=== PATIENT | female | born 1940 | race Caucasian/White ===

== ENCOUNTER 2024-12-17 15:46 | Inpatient (IN) | payer OTHER, SELFPAY ==
[2024-12-17] VITALS (16 sets, daily range): BP systolic 97–190; BP diastolic 67–172
--- NOTE | 2024-12-17 11:17 | ED.GENMED ---
History of Present Illness
General
Chief Complaint: Abdominal Pain
Time Seen by Provider: 12/17/24 11:07
History of Present Illness
History of Present Illness:
83-year-old female with reported history of dementia and baseline confusion presenting for enlarging abdominal pain. Patient arrives from nursing facility report abdominal pain and decreased appetite. They also note labored breathing, however
reports that dyspnea on exertion is patient's baseline. Patient is very limited historian given her dementia. She is also Citizen [place]-speaking. Attempt with [place] auto seat cover installer, no additional information obtained.
Phy Exam
Physical Exam
Physical Exam:
General: Well-appearing, no clinical signs of dehydration, nontoxic and in no acute distress
HEENT: protecting airway
Neck: appears supple
CV: Tachycardic, regular rhythm, no evidence of cyanosis
Resp: Increased work of breathing with upper respiratory wheezing. Lungs are clear to auscultation
Abd: Soft and non-distended, no tenderness to palpation
Extremities: No deformities, no swelling
Neuro: alert, disoriented
Rectal: deferred
Psych: Agitated
Skin: Intact
Course
Orders/Labs/Results
Orders:
Orders
12/17/24 11:12
Complete Blood Count/With Diff Urgent
Comprehensive Metabolic Panel Urgent
Lipase Urgent
TSH Reflex To Free T4 Urgent
Comment: ADD ON
12/17/24 11:15
Urinalysis Reflex To Culture Urgent
Date Specimen was Collected: 12/19/24
Time Specimen was Collected: 03:52
CR Chest - 2 Views Urgent
Comment:
Reason For Exam: SOB
12/17/24 11:16
0.9% Sodium Chloride 1000 ml [Nss] 1,000 ml IV BOLUS
12/17/24 11:21
NT-proBNP Urgent
Troponin I Urgent
Comment: ADD ON
12/17/24 11:25
Electrocardiogram (*1) Urgent
Reason for Study: Tachycardia
EKG- Treatment ONCE
12/17/24 11:46
Diltiazem HCl [Cardizem] 15 mg IV NOW STA
12/17/24 11:53
CT Chest/abd/pelvis Angio W/wo Urgent
Comment:
Reason For Exam: SOB, widened mediastinum
12/17/24 13:29
Lorazepam [Ativan] 0.5 mg IV NOW STA
12/17/24 14:00
Diltiazem 125 mg/125 ml Nss [Cardizem] 125 mg in 125 ml IV PER PROTOCOL
Currently infusing. Continue current dose and titrate:: Yes
Titrate to keep:: Heart rate 80-100 bpm
Titrate by mg/hr:: 5 mg/hr
Frequency of titrations (minutes):: 15
Maximum dose in mg/hr:: 15
Restraints - Non Violent As Directed
Justification-Patient:: 1-Attempts to remove tube
Restraint Type-: Soft Limb-L&R Wrist/4rail
Apply From (date): 12/17/24
Apply from (time): 14:00
Remove (date): 12/18/24
Remove (time): 23:59
12/17/24 14:11
Haloperidol Lactate [Haldol] 1 mg IM NOW STA
12/17/24 14:42
EKG [Electrocardiogram (*1)] Urgent
Reason for Study: Abnormal EKG
12/17/24 15:01
Furosemide [Lasix] 20 mg IV NOW STA
Levalbuterol [Xopenex 1.25 mg Inhalant Solution] 1.25 mg INH R NOW STA
12/17/24 15:02
Xopenex Reason for Use As Directed
Reason for ordering Xopenex instead of Albuterol: rapid afib
12/17/24 15:03
Add On- LAB Urgent
Tests Added?: troponin, tsh with free t4 reflex
12/17/24 15:05
Admit/Transfer Patient As Directed
Co-Sign Provider:
Level of Care: Inpatient admission
Assign to:: IMU- Intermediate Care
Physician / Group: arnaldo urrutia
Diagnosis: new afib rvr, Acute chf, A.aneurysm w/intramural hematoma,Occ L sfa,lung ma
Reason for Hospitalization: new afib rvr, Acute chf, A.aneurysm w/intramural hematoma,Occ L sfa,lung mass
Expected length of stay greater than two midnights?: Yes
ELOS- Estimated Length of Stay in days: 5
I certify the patient meets the requirements for IP care: Yes
Code Status As Directed
Resuscitation Status: Do not resuscitate
Based on pt advanced directive or healthcare POA form: Yes
Decision communicated with: pr NH form
12/17/24 15:18
PRN Pain Medication Management As Directed
May give lesser potent ordered pain med per pt: Yes
preference::
Protocol:: Medication orders for pain may be administered in a
manner that supports deferring to patient preference
when the pt is:
- Requesting an ordered lesser potent pain medication.
Least to most potent pain medications are defined
as: acetaminophen < NSAID < tramadol < opioids
(morphine, oxycodone, hydromorphone).
- Requesting a lesser dose of the same medication IF
ORDERED.
- Requesting a less intrusive route of administration
if both routes are prescribed by the provider (PO <
IV).
12/17/24 15:20
CARDIOLOGY CONSULT Routine
Consulting Provider: Eze Crocker
Was physician already notified: Yes
Reason for consult: new afib rvr, Acute chf, A.aneurysm w/intramural hematoma,Occ L sfa,lung ma
SURGICAL CONSULT Routine
Consulting Provider: Benjamin Huff
Was physician already notified: Yes
Reason for consult: A.aneurysm w/intramural hematoma,Occ L sfa,new afib rvr, Acute chf,lung ma
12/17/24 17:10
Acetaminophen [Tylenol] 650 mg PO Q4HPRN PRN
Haloperidol Lactate [Haldol] 1 mg IV BIDPRN PRN
Magnesium Hydroxide [Milk of Magnesia] 30 ml PO HSPRN PRN if no bm by 3rd day
12/17/24 17:10
VTE Contraindication Routine
VTE Mechanical Device Contraindication: Medical Contraindication
Pharmocologic Contraindication: Medical Contraindication
Comment: ascending hematoma afib rvr
Activity As Directed
Activity Level: With Assistance
Intake/ Output As Directed
Frequency: Per unit guidelines
Vital Signs As Directed
Frequency: Per unit guidelines
Weight As Directed
Frequency: Daily
Pulse Ox/spot Check [RESP] Routine
Quantity: 1
12/17/24 18:00
Metoprolol [Lopressor] 5 mg IV Q6
Sennosides [Senokot] 8.6 mg PO QPM
12/17/24 20:00
Lorazepam [Ativan] 0.5 mg PO BID
Memantine HCl [Namenda] 10 mg PO BID
12/18/24 04:09
Basic Metabolic Panel IN AM
Cardiovascular Evaluation IN AM
Complete Blood Count/With Diff IN AM
12/18/24 08:00
Cyanocobalamin [Vitamin B-12] 1,000 mcg PO DAILY
Polyethylene Glycol Powder [Miralax] 17 grams PO DAILY
12/19/24 03:31
Basic Metabolic Panel IN AM
Complete Blood Count/With Diff IN AM
12/20/24 06:00
Basic Metabolic Panel IN AM
Complete Blood Count/With Diff IN AM
12/21/24 06:00
Basic Metabolic Panel IN AM
Complete Blood Count/With Diff IN AM
12/22/24 06:00
Basic Metabolic Panel IN AM
Complete Blood Count/With Diff IN AM
Abnormal Lab Results
12/17/24 12/17/24
11:12 11:21
MCHC 31.9 L g/dL
(33.0-37.0)
Abs Immat Gran (auto) 0.1 H 10^3/uL
(0-0.05)
Absolute Neuts (auto) 8.5 H 10^3/uL
(1.4-6.5)
Absolute Lymphs (auto) 0.8 L 10^3/uL
(1.2-3.4)
Absolute Monos (auto) 1.0 H 10^3/uL
(0.1-0.6)
Neutrophils % 81.6 H %
(42.2-75.2)
Lymphocytes % 8.0 L %
(20.5-51.1)
BUN 18 H mg/dl
(7-17)
Creatinine 1.1 H mg/dL
(0.6-1.0)
Glucose 134 H mg/dl
(70-99)
Total Bilirubin 1.4 H mg/dl
(0.2-1.3)
Troponin I 0.036 H* ng/ml
12/17/24 11:12
12/17/24 11:12
Vital Signs
Initial and Last Documented VS:
Initial Vital Signs
Temp Pulse Resp
98.4 F 123 29
12/17/24 11:03 12/17/24 11:03 12/17/24 11:03
Last Documented Vital Signs
Temp Pulse Resp BP Pulse Ox
98.2 F 112 28 114/99 94
12/19/24 07:24 12/19/24 12:00 12/19/24 12:00 12/19/24 12:00 12/19/24 08:23
MDM/Problems Addressed
MDM/Problems Addressed:
83-year-old female with history of dementia presenting from nursing facility with concern of abdominal pain. Vital signs on arrival are significant for tachycardia and tachypnea.
On exam, patient is in no acute distress, however is agitated. Attempt with auto seat cover installer, unsuccessful. Patient answers no to all questioning. Daughter is allegedly coming to the hospital, so we will try to obtain more information from daughter.
In the meantime, plan for laboratory analysis given presenting tachypnea. Will obtain chest x-ray imaging. No present tenderness to the abdomen. Will also obtain EKG and start patient IV fluids, report of decreased p.o. intake, slight dryness to
mucous membranes.
11:50 -did get in touch with patient's daughter who notes that she does have underlying dementia. She reports that over the weekend she had a call that the patient had vomited however her vitals were stable. Today they got a call that she was
hypertensive and tachycardic and that they were bringing her to the hospital. She notes that every time that she has seen her in the recent past, has seemed short of breath, dyspnea on exertion. This is not her baseline. Chest x-ray obtained
while having this conversation which shows moderate bilateral pleural effusions and pulmonary edema. Patient is also in atrial fibrillation, which is not known to her. Suspect that patient has likely been in atrial fibrillation which is now
putting her into congestive heart failure. Will start on diltiazem.
13:55 -CT shows concern of fusiform aneurysmal dilatation of the ascending thoracic aorta measuring up to 5 cm with peripheral crescentic rim of hyperattenuation on the noncontrast images measuring up to 5 mm in thickness suspicious for acute
intramural hematoma. No dissection appreciated. There is also mention of an occlusion of the left superficial femoral artery. Holding anticoagulation until input from cardiology. Also mention of a suspected primary lung cancer in the left upper
lobe. Fluctuating blood pressures, given patient's agitation. Starting on diltiazem drip and soft restraints. Did consult with CT surgery, recommending cardiac consultation. Discussed with cardiology, will see patient. Plan for admission.
*Pulse Oximetry
Patient hypoxic: no
*EKG
Interpreted by ED Provider?: Yes
EKG Intrepretation Date: 12/17/24
EKG Intrepretation Time: 14:02
Interpretation: abnormal
Comparison EKG: no comparison EKG present
Heart Rate: 113
Rate: tachycardiac
Rhythm: sinus and a-fib
Barton: normal axis
QRS Pattern: normal QRS
Ischemia: non-specific ST changes
*Critical Care Note
Total Time (30-74mins, 75-104mins- exclusive of procedures): 55
comment:
The high probability of a clinically significant, sudden or life threatening deterioration of the cardiovascular system(s) required my full and direct attention, intervention and personal management. The aggregate critical care time was [] minutes.
This time is in addition to time spent performing reported procedures but includes the following:
[x] Data Review and interpretation
[x] Patient assessment and monitoring of vital signs
[x] Documentation
[x] Medication orders and management
ED Attending Note
-
Portions of this chart may have been created with voice recognition software.� Occasional wrong word or��sound alike� substitutions may have occurred due to the inherent limitations of voice recognition software.
Discharge Plan
Departure
Patient Disposition: Admit
Date of Disposition: 12/17/24
Time of Disposition: 14:01
Presentation/result/management discussed w/ accepting MD/DO: Hospitalist
Patient with high blood pressure during this ER visit?: No
Condition: Critical
Discharge Problem:
Atrial fibrillation, Intramural hematoma of thoracic aorta, Shortness of breath
Interventions
Interventions:
*Risk Screen - Suicide Last Done: 12/17/24 11:28
*General Assessment Last Done: 12/17/24 11:28
*Neglect/Abuse Screening Last Done: 12/17/24 11:28
*ED- Fall Risk Assessment Last Done: 12/17/24 11:28
*ED COVID-19 Vaccine History Last Done: 12/17/24 11:28
*Nursing Disposition Last Done: 12/17/24 18:30
WA-Igtkpz-Wmfjubpwgl Assessment Last Done: 12/17/24 11:28
Discharge Date and Time
Discharge Date/Time: 12/17/24 18:31
[2024-12-17 11:22] LABS: Hematocrit 45.2 % (37.0-47.0); Hemoglobin 14.4 g/dL (12.0-16.0); Mean Corp Hgb Conc. 31.9 g/dL (33.0-37.0); Mean Corpuscular Volume 89.2 fL (81.0-99.0); Nucleated Red Blood Cells % 0 %; Platelet Count 229 10^3/uL (130-400); Red Cell Dist. Width 13.6 % (11.5-14.5)
[2024-12-17] MEDS: NSS 1000 IV (11:25)
[2024-12-17 11:33] LABS: ALT (SGPT) 15 U/L (0-35); AST (SGOT) 21 U/L (14-36); Albumin 4.0 g/dl (3.5-5.0); Alkaline Phosphatase 59 U/L (38-126); Blood Urea Nitrogen 18 mg/dl (7-17); Calcium 9.1 mg/dl (8.4-10.2); Carbon Dioxide 30 mmol/L (22-30); Chloride 104 mmol/L (98-107); Glucose 134 mg/dl (70-99); Lipase 39 U/L (23-300); Potassium 3.9 mmol/L (3.5-5.1); Sodium 141 mmol/L (135-145); Total Protein 7.4 g/dl (6.3-8.2); eGFR 49.24
[2024-12-17] MEDS: CARDIZEM 15 MG IV (11:55)
[2024-12-17] MEDS: ATIVAN 0.5 MG IV (13:34)
[2024-12-17] MEDS: CARDIZEM 125 IV (14:15)
--- NOTE | 2024-12-17 14:23 | CON.CAR ---
Addendum entered and electronically signed by Eze Crocker MD 12/17/24 18:54:
I saw and examined the patient independently.
The TRAINING FACILITATOR's note was reviewed and I agree with the note with changes/additions below.
Comment:
83 yo female, [place] resident with dementia admitted with abdominal pain. Found to have fusiform aneurysmal dilatation of the ascending thoracic aorta measuring up to 5 cm with peripheral crescentic rim of hyperattenuation on the noncontrast images
measuring up to 5 mm in thickness suspicious for acute intramural hematoma; no dissection appreciated. Exam with irregular rhythm, no murmurs, trace LE edema. Tele and EKG: A fib vs MAT.
# Asc Ao aneurysm, with acute intramural hematoma
-threat to life
-discussed with CT surgery: not a surgical candidate
-IV beta argenis and CCB, with monitoring of tele
# Rhythm
-per EP: likely MAT
-not a candidate for AC if develops A fib
-rate control
# Goals of care
-discussed with daughter at bedside: wants to try to stabilize with meds before considering hospice
Original Note:
Consultation
Consultation Request
Date/Time Consultation Requested: 12/17/24 1352
Date/Time Consultation Performed: 12/17/24 1420
Requesting Provider: Dr. Garcia
Performing Provider: Jennie BASS for Dr. Crocker
Reason for Consultation: AFIB, SOB
Medical History
-
Chief Complaint: abdominal pain
History of Present Illness:
83 y/o female ([place] speaking) with anxiety and dementia who came from [place] with reports of abdominal pain and was seen to have tachycardia and tachypnea. She has dementia and per my discussion with nursing and ER MD documentation- unable to use
[place] processing lead effectively as a result. She has required lorazepam and restraints, and is currently calm. She is in no distress, but WOB increased to my assessment and requiring O2 by NC. She also has audible wheezing. Imaging has revealed
fusiform aneurysmal dilatation of the ascending thoracic aorta measuring up to 5 cm with evidence for acute intramural hematoma with no dissection appreciated. 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
evidence for lung cancer. We are consulted for SOB and AFIB. She is on a diltiazem drip. She did receive a liter of fluid in ER.
Past Medical History
Past Medical History: Other (dementia, as above)
Social History
Living: Skilled Nursing
Family History
Family History: Unable to Obtain
Allergies / Home Medications
Allergy/AdvReac Type Severity Reaction Status Date / Time
No Known Allergies Allergy Verified 12/17/24 11:26
�Medication �Instructions �Recorded �Confirmed �Type
acetaminophen 325 mg tablet 650 mg PO Q6HPRN PRN mild pain 12/17/24 12/17/24 History
(Tylenol)
cyanocobalamin (vitamin B-12) 1,000 mcg PO DAILY 12/17/24 12/17/24 History
1,000 mcg tablet
furosemide 20 mg tablet (Lasix) 20 mg PO Q48H 12/17/24 12/17/24 History
lorazepam 0.5 mg tablet 0.5 mg PO BID 12/17/24 12/17/24 History
magnesium hydroxide 400 mg/5 mL 2,400 mg PO HSPRN PRN if no bm by 12/17/24 12/17/24 History
oral suspension (Milk of Magnesia) 3rd day
memantine 10 mg tablet 10 mg PO BID 12/17/24 12/17/24 History
polyethylene glycol 3350 17 gram 17 g PO DAILY 12/17/24 12/17/24 History
oral powder packet (Miralax)
sennosides 8.6 mg tablet (senna) 8.6 mg PO QPM 12/17/24 12/17/24 History
Review of Systems
-
History Source: Other (chart)
Respiratory: Trouble Breathing
Abdomen/GI: Abdominal Pain and Vomiting
Physical Exam
Vital Signs
Temp Pulse Resp BP Pulse Ox
98.4 F 115 17 190/172 96
12/17/24 11:03 12/17/24 13:46 12/17/24 13:46 12/17/24 13:40 12/17/24 13:30
Lab Results
12/17/24 11:12
12/17/24 11:12
Gam-T-Qzvawxvgblv Pept 3890 pg/ml 12/17/24 11:21
Physical Exam
General: Well Developed, Well Nourished and No Apparent Distress
HEENT: Normocephalic and Anicteric
Respiratory: Other (diminished to bases, on O2 by NC. Audible wheezing. Increased WOB.)
Cardiac: Irregular Rhythm
Musculoskeletal: No Edema
Skin: Warm and Dry
Neuro: Awake and Other (patient with dementia, oriented to self per nursing. Cannot use the processing lead effectively.)
Impression / Plan
-
Ascending thoracic aorta dilatation (5 cm), with evidence for acute intramural hematoma with no dissection appreciated:
-on IV diltiazem for HR and BP management
-Per CTS, not surgical candidate. Vascular is consulted. HR and BP control.
Left superficial femoral artery occlusion:
-vascular consulted
AFIB with RVR:
-seems to be new diagnosis. Can continue IV diltiazem for now, which requires intensive monitoring.
-[id number] score is 4 for age, female, CHF. Patient with intramural hematoma and we will not start AC at this time. Also of note is that, in chart, there are reports of repeated falls and ambulatory dysfunction.
SOB:
-likely a component of CHF, type unknown- echo ordered. BNP elevated. Agree with IV Lasix, which requires intensive monitoring. Monitor response.
-also with imaging concern for lung cancer- management per primary
-currently with wheezing, and nebulizer is ordered
Dementia:
-on medicine
Anxiety:
-received lorazepam
Data Reviewed
-
EKG: Tracing Personally Visualized and interpreted
Radiology: Report Reviewed by me (CXR: Small left-sided pleural effusion. Nonspecific subpleural opacity within the peripheral left midlung measuring up to 9 mm. Small nodule/granuloma within the peripheral right midlung measuring 4 mm. Widened
appearance of the mediastinum which may be secondary to uncoiling of the thoracic aorta)
CT Scan: Report Reviewed by me (Fusiform aneurysmal dilatation of the ascending thoracic aorta measuring up to 5 cm with peripheral crescentic rim of hyperattenuation on the noncontrast images measuring up to 5 mm in thickness suspicious for acute
intramural hematoma. No dissection appreciated... 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 2.7 cm lobulated nodule within the anterior apex of the left upper lobe suspicious for a primary
lung cancer. Additional elongated pleural-based nodule within the lateral left upper lobe measuring up to 8 mm. Small left pleural effusion)
Medical Tests (Nuc Med, Echo etc): Other (echo ordered)
Labs: Labs Reviewed by me
--- NOTE | 2024-12-17 14:46 | HPS.HSE ---
Family Physician
-
Family Physician: Tian Xavier MD
Chief Complaint
-
Abdominal distention, shortness of breath, tachycardia
History of Present Illness
83-year-old female [place]-speaking with dementia from senior living sent over due to tachycardia, shortness of breath and distended abdomen. In the ER patient had agitation likely due to dementia did require soft restraints. ER spoke with daughter
who is coming to hospital. Patient CT chest abdomen pelvis showed ascending aorta with intramural hematoma along with occlusion of left superficial femoral artery and new left upper lobe lung mass.
Patient has past medical history of CHF, dementia, anxiety, chronic constipation, B12 deficiency
Medical History
Past Medical History
Past Medical History: Reports Other
Additional Past Medical History:
CHF
dementia with agitation
anxiety
chronic constipation
B12 deficiency
Past Surgical History: Reports Other (Unknown)
Social History
Tobacco: Non-smoker
Living: [facility]
Employment: Retired
Family History
Family History: Unable to Obtain
Allergies / Home Medications
Allergies reflects when Allergies were last updated in [facility].
Home Medications with original date entered in [facility]
Allergy/Medication List:
Allergies
Allergy/AdvReac Type Severity Reaction Status Date / Time
No Known Allergies Allergy Verified 12/17/24 11:26
Home Medications
acetaminophen 325 mg tablet (Tylenol) 650 mg PO Q6HPRN PRN mild pain 12/17/24
cyanocobalamin (vitamin B-12) 1,000 mcg tablet 1,000 mcg PO DAILY 12/17/24
furosemide 20 mg tablet (Lasix) 20 mg PO Q48H 12/17/24
lorazepam 0.5 mg tablet 0.5 mg PO BID 12/17/24
magnesium hydroxide 400 mg/5 mL oral suspension (Milk of Magnesia) 2,400 mg PO HSPRN PRN if no bm by 3rd day 12/17/24
memantine 10 mg tablet 10 mg PO BID 12/17/24
polyethylene glycol 3350 17 gram oral powder packet (Miralax) 17 g PO DAILY 12/17/24
sennosides 8.6 mg tablet (senna) 8.6 mg PO QPM 12/17/24
Review of Systems
-
History Source: Other (ER record)
Constitutional: Denies Fever, Fatigue or Chills
EENT: Denies Runny Nose
Respiratory: Reports Trouble Breathing (Wheezing)
Cardiac: Denies Diaphoresis or Syncope
Abdomen/GI: Reports Abdominal Pain (Reported)
Musculoskeletal: Denies Edema
Skin: Denies Itching or Rash
Neurological: Denies Weakness
Psych: Reports Other (Agitation)
Physical Exam
Vital Signs
Vital Signs
Temp Pulse Resp BP Pulse Ox
98.4 F 110 28 131/93 96
12/17/24 11:03 12/17/24 14:15 12/17/24 14:15 12/17/24 14:15 12/17/24 14:15
Physical Exam
General: No Fever or Chills
HEENT: NormoCephalic, Anicteric, Moist mucous membranes, PERRLA, [place] Conjunctivae and No Ptosis
Respiratory: Wheezes; No Rales or Rhonchi
Cardiac: S1/S2 and Irregular Rhythm (A-fib HR 111); No Murmur, Rub, Gallop or Peripheral Edema
Breast: Deferred by me
GI: Soft, Non Tender, Non Distended, Normal Bowel Sounds and No Hepatosplenomegaly
Rectal: Deferred by Provider
Genito-urinary: Deferred by me
Musculoskeletal: No Clubbing, No Cyanosis and No Edema
Skin: Warm and Dry
Neuro: Awake, Alert ([place] speaking only is confused agitation has bilateral wrist soft restraints in place), Cranial Nerves Intact and No Sensory Deficits; No Facial Droop or Tremors
Psych: Confused and Agitated
Laboratory Results
-
12/17/24 11:12
12/17/24 11:12
Laboratory Results
Total Bilirubin 1.4 mg/dl (0.2-1.3) H 12/17/24 11:12
AST 21 U/L (14-36) 12/17/24 11:12
ALT 15 U/L (0-35) 12/17/24 11:12
Alkaline Phosphatase 59 U/L (38-126) 12/17/24 11:12
Lipase 39 U/L (23-300) 12/17/24 11:12
Impression/Plan
-
Impression/plan:
Admit to IMU
#New onset MAT vs Sinus with frequent PAC'S
-IV Cardizem drip started in er thought to be AFIb but will stop
-IV Lopressor 5 mg every 6 hours hold if SBP<110
- Check 2D echo
- Consult CBC cardiology
- TSH with free T4 reflex
- Check troponin
#Acute on chronic CHF
BNP 3890
I/O, daily weight
- Check 2D echo
- IV Lasix 20 mg now, further diuresis per cardiology
#Acute wheezing concern for bronchitis versus possible lung mass causing
- Xopenex for wheezing
- IV Decadron 4 mg every 12 hours
#Aortic aneurysm 5 cm with intramural hematoma
- CT surgery was consulted no current intervention planned due to age, dementia, medical issues above,
-plan BP mgmt
#Occlusion left superficial femoral artery no acute concern for ischemia per Vascular
Pt with bilat pulses, extremities pink warm no swelling
- Consult vascular surgery
#New 2.7 left upper lobe lung mass concern for primary lung CA
-Xopenex for wheezing
- Consult pulmonary as daughter would like evaluation
CT chest abdomen pelvis with without contrast:
1. Fusiform aneurysmal dilatation of the ascending thoracic aorta measuring up to 5 cm with peripheral crescentic rim of hyperattenuation on the noncontrast images measuring up to 5 mm in thickness
suspicious for acute intramural hematoma. No dissection appreciated.
2. 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
3. 2.7 cm lobulated nodule within the anterior apex of the left upper lobe suspicious for a primary lung cancer. Additional elongated pleural-based nodule within the lateral left upper lobe measuring up to 8 mm.
Small left pleural effusion.
4. Cholelithiasis. Nonspecific small amount of gas seen within the fundus. No inflammatory changes appreciated.
#Dementia Hx with acute agitation
#Anxiety
-Continue Namenda 10 mg twice daily, lorazepam 0.5 mg p.o. twice daily
- Patient in soft restraints did receive Haldol and IV Ativan
- IV Haldol as needed
? CKD 3B
Creat 1.1/bun 18 unsure of baseline labs
- Follow BMP
#Chronic constipation
-Continue MiraLAX 17 g daily, senna 8.6 mg p.o. every afternoon
#B12 deficiency
Continue B12 supplement
DVT prophylaxis
Will defer to vascular surgery given occluded left SFA, intramural hematoma with aneurysm, A-fib
Full code patient's daughter at bedside changed from DNR, daughter reports once everything done
[2024-12-17] MEDS: XOPENEX 1.25 MG INHALANT SOLUTION INH (15:20)
[2024-12-17] MEDS: LASIX 20 MG IV (15:20)
--- NOTE | 2024-12-17 16:11 | CON.VAS ---
Addendum entered and electronically signed by Cole Myao III, MD 12/18/24 08:08:
This patient was seen and examined in collaboration with KALI Martínez. I agree with the history and physical exam as well as the assessment and plan. I have the following additions:
Montenegrin-speaking female, 83 years old
Consulted for incidental finding of proximal left superficial femoral artery occlusion on CT scan
Communicated with patient this morning using Montenegrin top stitcher
Patient denies any pain in her left foot
This AM she is pleasant and in no distress
Resting comfortably but easily arousable
On physical examination her left foot is pink and warm
Capillary refill is intact
We closely inspected her left foot and toes. No open wounds or ulcerations are identified
She has nonpalpable left pedal pulses. Pulsatile Doppler signal audible at the posterior tibial location
Recommendation is for continued medical therapy for arterial disease risk factors
The SFA occlusion is likely chronic and she is asymptomatic
Given that she has no limb threatening ischemia symptoms at the present time I am not recommending surgical intervention
Please call with questions or concerns
Signed:
Cloe Mayo III, MD
Vascular Surgery
[facility]
Original Note:
Consultation
Consultation Request
Date/Time Consultation Performed: 12/17/2024 1600
Requesting Provider: Hospitalist
Performing Provider: Kandi Zambrano NP-Ba[place] for Benjamin Huff MD
Reason for Consultation: Left superficial femoral artery occlusion
Medical History
-
Chief Complaint: Per Chart ABD pain and SOB
History of Present Illness:
This is a 83 year old female patient with significant past medical history for CHF, dementia, anxiety, chronic constipation, and B12 deficiency who resides at a intermediate, who was brought to ED by intermediate staff for reports of ABD pain and
shortness of breath. Patient is Montenegrin speaking only and per chart review/discussion with hospitalist she has a history for dementia, oriented to self. Patient cannot contribute to HPI, she is currently in BL wrist restraints and combative. She has
no records of prior ED visits or admissions at this hospital. She is audibly wheezing and currently attempting to receive nebulizer but is re attempting several times to remove mask. She underwent CT CHEST/ABD/PELVIS which demonstrated left
superficial artery occlusion prompting vascular consultation. Left foot feels warm and appears well perfused, she cannot move to command but has robust movement and witnessed plantar and dorsiflexion, reacts to touch.
Past Medical History
Past Medical History: CHF and Other (Dementia, anxiety, chronic constipation, B12 deficiency )
Past Surgical History: Other (Cannot verify )
Social History
Tobacco: Non-Smoker (per chart review)
Living: Senior Living
Allergies / Home Medications
Allergy/AdvReac Type Severity Reaction Status Date / Time
No Known Allergies Allergy Verified 12/17/24 11:26
�Medication �Instructions �Recorded �Confirmed �Type
acetaminophen 325 mg tablet 650 mg PO Q6HPRN PRN mild pain 12/17/24 12/17/24 History
(Tylenol)
cyanocobalamin (vitamin B-12) 1,000 mcg PO DAILY 12/17/24 12/17/24 History
1,000 mcg tablet
furosemide 20 mg tablet (Lasix) 20 mg PO Q48H 12/17/24 12/17/24 History
lorazepam 0.5 mg tablet 0.5 mg PO BID 12/17/24 12/17/24 History
magnesium hydroxide 400 mg/5 mL 2,400 mg PO HSPRN PRN if no bm by 12/17/24 12/17/24 History
oral suspension (Milk of Magnesia) 3rd day
memantine 10 mg tablet 10 mg PO BID 12/17/24 12/17/24 History
polyethylene glycol 3350 17 gram 17 g PO DAILY 12/17/24 12/17/24 History
oral powder packet (Miralax)
sennosides 8.6 mg tablet (senna) 8.6 mg PO QPM 12/17/24 12/17/24 History
Review of Systems
-
Unable to obtain full review of systems at this time due to: Dementia
Physical Exam
Vital Signs
Temp Pulse Resp BP Pulse Ox
98.4 F 121 28 114/98 97
12/17/24 11:03 12/17/24 16:01 12/17/24 16:01 12/17/24 16:01 12/17/24 16:00
Lab Results
12/17/24 11:12
12/17/24 11:12
Mnj-D-Lqzptyxhyjj Pept 3890 pg/ml 12/17/24 11:21
Physical Exam
General: No Apparent Distress and Comfortable
HEENT: Normocephalic, Anicteric and Atraumatic
Respiratory: Wheezes
Cardiac: Negative JVD
GI: Soft and Non Distended
Musculoskeletal: No Edema
Skin: Warm, Dry and Other (No open wounds to left foot, foot warm, cap refill less than 3 seconds, motor intact patient able to dorsiflex/plantarflex and has strong withdraw, cannot fully asses sensation, patient reacts to touch)
Neuro: Other (unable to assess, pt with history of dementia and per chart review at baseline oriented to self only, currently agitated in BL wrist restraints, and s/p receiving sedative for agitation )
Pulses: Right Dorsalis Pedis: Doppler (Unable to fully asses BL femoral pulses due to patient agitation ), Left Posterior Tibial: Doppler and Right Posterior Tibial: Doppler
Assessment / Plan
-
Assessment: 83 year old female with significant past medical history for CHF, dementia, anxiety, chronic constipation, and B12 deficiency who was brought to [place] ED from intermediate with reports of shortness of breath and ABD pain incidental
finding on CT scan of left superficial femoral artery occlusion. No physical exam evidence of ischemia to left foot.
Plan:
Patient with incidental finding of left superficial femoral artery occlusion on CT CHEST/ABD/PELVIS, suspect chronic given left foot has no physical exam findings of ischemia, would not recommend emergent/urgent need for revascularization, will
continue to follow. HPI, PE, and diagnostic findings reviewed with associate professor of education physician Dr. Benjamin Huff who agrees with plan.
[2024-12-17 16:14] LABS: Troponin I 0.036 ng/ml
--- NOTE | 2024-12-17 16:21 | W.PN.UPDATE ---
Addendum entered and electronically signed by Ayaz Medellin MD 12/17/24 20:37:
will keep Cardizem drip given aneurysm/hematoma - d/w Dr. Crocker
Original Note:
Update Note
Progress Note Update
I saw and examined the patient.
The PHOTOGRAPHIC ARTIST [place] note was reviewed and I agree with the note.
Comment: 83 y/o F, hx of Dementia, Italian speaking from [facility] presents to ER with acute worsening of chronic SOB per daughter. Daughter reports ongoing SOB for 6 months. Today patient was noted to have abd discomfort and Tachycardia. In
ER, patient agitated requiring restraints, meds - limiting history. CXR revealed 1 cm L lung nodule and widened mediastinum - f/u CT imaging reveal ascending aortic aneurysm with small hematoma, new HERNAN lung mass and L superficial fem artery
occlusion. Patient admitted for eval and treatment
Exam:
General: No Fever or Chills
HEENT: Normocephalic, Anicteric, Moist mucous membranes, PERRLA, [place] Conjunctivae and No Ptosis
Respiratory: Wheezes; No Rales or Rhonchi
Cardiac: S1/S2 and Irregular Rhythm (A-fib HR 111); No Murmur, Rub, Gallop or Peripheral Edema
Breast: Deferred by me
GI: Soft, Non Tender, Non Distended, Normal Bowel Sounds and No Hepatosplenomegaly
Rectal: Deferred by Provider
Genito-urinary: Deferred by me
Musculoskeletal: No Clubbing, No Cyanosis and No Edema
Skin: Warm and Dry
Neuro: Awake, Alert (Italian speaking only is confused agitation has bilateral wrist soft restraints in place), Cranial Nerves Intact and No Sensory Deficits; No Facial Droop or Tremors
Psych: Confused and Agitated
Assessment:
MAT with PACs
- stop Cardizem drip
- IV Lopressor 5mg q6 prn with parameters
- CBC cards evaluation
- check TSH/trop
Wheezing
suspected multifactorial from acute CHF and HERNAN lung mass (2.7 left upper lobe lung mass concern for primary lung CA)
- Cards/Pulm evaluation
- s/p IV Lasix
- IV Steroids
- Nebs
- Echo
Acute ascending aortic aneurysm 5 cm with intramural hematoma
- CT surgery was consulted no current intervention planned due to age, dementia, medical issues above,
- plan BP mgmt
- CBC Cards evaluation
Occlusion left superficial femoral artery
- Pt with bilat pulses, extremities pink warm no swelling
- Consult vascular surgery; no concern for limb ischemia - no procedure planned
Dementia Hx with acute agitation
Anxiety
- continue Namenda 10 mg twice daily, lorazepam 0.5 mg p.o. twice daily
- Patient in soft restraints did receive Haldol and IV Ativan
- IV Haldol as needed
CKD 3B
Creat 1.1/bun 18 unsure of baseline labs
- Follow BMP
Chronic constipation
- continue MiraLAX 17 g daily, senna 8.6 mg p.o. every afternoon
B12 deficiency
- Continue B12 supplement
DVT prophylaxis: SCDs
Code: Full - changed by daughter - initially was DNR/DNI
[2024-12-17] MEDS: DECADRON 4 MG IV (16:37)
[2024-12-17] MEDS: LOPRESSOR 5 MG IV (19:48)
[2024-12-17] MEDS: SENOKOT 8.6 MG PO (19:48)
[2024-12-17] MEDS: ATIVAN 0.5 MG PO (19:48)
[2024-12-17] MEDS: NAMENDA 10 MG PO (19:48)
[2024-12-17 20:05] LABS: Troponin I 0.025 ng/ml
--- NOTE | 2024-12-17 23:31 | PTCARENOTE ---
Assumed care for patient overnight, received report from kamran RN. Pt Citizen Of [place] speaking. Attempted to use sustainability consultant for communication unable to obtain information. Pt baseline dementia. AAOx1 only to self. Pt in A-fib on the monitor, remains on
Cardizem gtt currently at 10mg/hr HR 95. BP is stable. Received pt on 2L NC pt has shallow labored breathing with audible expiratory wheeze. Abdomen is round. Pt incontinent of urine, purewick in place with shahid output. R AC IV leaking, removed. IV
placed in the L hand. Troponin 0.025. B/l soft wrist restraints, pt remains confused and attempting to remove lines/tubes. Full G bath and linens changed. Pt tolerating frequent turning and repositioning. Educated on use of call guzman.
[2024-12-18] VITALS (13 sets, daily range): BP systolic 88–125; BP diastolic 66–91
[2024-12-18] MEDS: LOPRESSOR IV ×3 (00:07→17:33)
[2024-12-18] MEDS: DECADRON 4 MG IV (03:54)
[2024-12-18 04:26] LABS: Hematocrit 41.2 % (37.0-47.0); Hemoglobin 13.7 g/dL (12.0-16.0); Mean Corp Hgb Conc. 33.3 g/dL (33.0-37.0); Mean Corpuscular Volume 87.3 fL (81.0-99.0); Nucleated Red Blood Cells % 0 %; Platelet Count 213 10^3/uL (130-400); Red Cell Dist. Width 13.5 % (11.5-14.5)
[2024-12-18 04:55] LABS: Blood Urea Nitrogen 21 mg/dl (7-17); Calcium 8.7 mg/dl (8.4-10.2); Carbon Dioxide 28 mmol/L (22-30); Chloride 107 mmol/L (98-107); Glucose 155 mg/dl (70-99); HDL Cholesterol 42 mg/dl; LDL Cholesterol, Calculated 124 mg/dl; Potassium 4.2 mmol/L (3.5-5.1); Sodium 140 mmol/L (135-145); Very Low Density Lipoprotein 16 mg/dl (0-30); eGFR 55.21
[2024-12-18] MEDS: LOPRESSOR 5 MG IV (06:02)
[2024-12-18] MEDS: CARDIZEM 125 IV (06:08)
--- NOTE | 2024-12-18 08:05 | PTCARENOTE ---
Patient received from operation shift supervisor. Patient resting comfortably in bed. AAOx1, mostly to self, VSS. No events noted overnight. No visible complaints of pain. Remains in B/L soft wrist restraints due to pull at everything including lines. Was
weaned off O2 last night to Room Air. Cardizem gtt remains on at 5mg/hr. Purewick in place. ECHO ordered for today, no other testing scheduled at this time. Call guzman in reach.
[2024-12-18] MEDS: VITAMIN B-12 1000 MCG PO (08:19)
[2024-12-18] MEDS: NAMENDA 10 MG PO ×2 (08:19→20:55)
[2024-12-18] MEDS: ATIVAN 0.5 MG PO ×2 (08:19→20:55)
[2024-12-18] MEDS: MIRALAX 17 GRAMS PO (08:19)
--- NOTE | 2024-12-18 08:44 | W.PN.CD ---
Addendum entered and electronically signed by Casey Denson MD 12/18/24 08:52:
Move to ER Dilt closer to discharge
South Sudanese speaker, some limited Vietnamese
Original Note:
Today's Communication / Plan
-
Echo review when available
Move to PO dilt
Add oral Lasix
Impression / Plan
-
Ascending thoracic aorta dilatation (5 cm), with evidence for acute intramural hematoma with no dissection appreciated:
-on IV diltiazem for HR and BP management
-Per CTS, not surgical candidate. Vascular is consulted. HR and BP control.
Left superficial femoral artery occlusion:
-vascular consulted
AFib with RVR:
-First ekg MAT, second EKG AFib
-seems to be new diagnosis. Move to PO dilt
-[id number] score is 4 for age, female, hx HF. Patient with intramural hematoma and we will not start AC at this time. Also of note is that, in chart, there are reports of repeated falls and ambulatory dysfunction.
SOB:
-likely a component of HF, type unknown- echo ordered. BNP elevated
-Will start daily Lasix
-also with imaging concern for lung cancer- management per primary
-not wheezing now, wheeze noted yesterday
Possible lung cancer
- CT notes: 2.7 cm lobulated nodule within the anterior apex of the left upper lobe suspicious for a primary lung cancer. Additional elongated pleural-based nodule within the lateral left upper lobe measuring up to 8 mm. Small left pleural effusion.
Dementia
Anxiety
Physical Exam
Vital Signs/Labs
Vital Signs
Temp Pulse Resp BP Pulse Ox
97.4 F 105 20 125/88 96
12/18/24 07:36 12/18/24 06:02 12/18/24 06:00 12/18/24 06:02 12/18/24 06:00
12/17/24 12/18/24 12/19/24
06:59 06:59 06:59
Actual Weight 81.1 kg
12/18/24 04:09
12/18/24 04:09
Triglycerides 82 mg/dl (10-149) 12/18/24 04:09
LDL Cholesterol, Calc 124 mg/dl 12/18/24 04:09
VLDL Cholesterol, Calc 16 mg/dl (0-30) 12/18/24 04:09
HDL Cholesterol 42 mg/dl 12/18/24 04:09
12/17/24
11:21
Sda-C-Vaqfcmgywtu Pept 3890
LAB Results
12/17/24 12/17/24
11:21 19:33
Troponin I 0.036 H* 0.025
Physical Exam
Constitutional: No acute distress
EENT: Anicteric
Cardiovascular: Rhythm/rate is irregular
Respiratory: Respiratory effort normal and Lungs clear to auscul.
GI: Soft
Neuro/Psych: Alert
Data Reviewed
-
Date of Service: December 18, 2024
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
[2024-12-18] MEDS: CARDIZEM 60 MG PO ×3 (11:00→21:00)
[2024-12-18] MEDS: LASIX 20 MG PO (11:01)
--- NOTE | 2024-12-18 13:46 | W.PN.HOSP.TC ---
Today's Communication/Plan
-
Transition to oral Cardizem and Lasix.
Monitor respiratory status.
Echocardiogram
Assessment / Plan
Assessment / Plan
Impression
83 y/o F, hx of Dementia, Lao speaking from [facility] presents to ER with acute worsening of chronic SOB per daughter. Daughter reports ongoing SOB for 6 months. Today patient was noted to have abd discomfort and Tachycardia. In ER,
patient agitated requiring restraints, meds - limiting history. CXR revealed 1 cm L lung nodule and widened mediastinum - f/u CT imaging reveal ascending aortic aneurysm with small hematoma, new HERNAN lung mass and L superficial fem artery occlusion.
Patient admitted for eval and treatment
Exertional dyspnea likely multifactorial secondary to below:
Left upper lobe lung mass with minimal pleural effusion
Atrial fibrillation with RVR transitioned from [facility], new diagnosis
Acute CHF unknown type.
Ascending thoracic aorta dilation (5 cm with acute intramural hematoma with no dissection.
Left superficial femoral artery occlusion incidental finding
Conditions prior to admission:
Dementia likely vascular with acute agitation upon presentation.
Anxiety.
CKD stage IIIb unknown baseline creatinine.
Chronic constipation
B12 deficiency
CT scan
1. Fusiform aneurysmal dilatation of the ascending thoracic aorta measuring up to 5 cm with peripheral crescentic rim of hyperattenuation on the noncontrast images measuring up to 5 mm in thickness suspicious for acute intramural hematoma. No
dissection appreciated.
2. 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
3. 2.7 cm lobulated nodule within the anterior apex of the left upper lobe suspicious for a primary lung cancer. Additional elongated pleural-based nodule within the lateral left upper lobe measuring up to 8 mm. Small left pleural effusion.
4. Cholelithiasis. Nonspecific small amount of gas seen within the fundus. No inflammatory changes appreciated.
5. Additional findings above.
Plan:
Left upper lobe mass suspicious for primary lung carcinoma.
Lifetime non-smoker.
Relatively stable respiratory status at rest with no requirements of supplemental oxygen.
Discussed with pulmonology.
While mass could be relatively accessible for biopsy, long-term outcome with aggressive treatment of lung CA including potential chemotherapy, immunotherapy, radiation, possibly surgical intervention would be limited in 83 years old patient with
other multiple comorbidities as well as advanced dementia.
Monitor closely. Monitor left pleural effusion for accumulation and possibly diagnostic and therapeutic thoracentesis
No clear indication for corticosteroids as patient Rales on wheezing improved with diuresis.
MAT to atrial fibrillation with RVR, new diagnosis.
Initiated on IV Cardizem drip, later with better control transition to oral Cardizem 60 mg 4 times daily. Continue cardiac monitoring adjust dose as required.
[id number] score is 4 for age, female, hx HF, although patient is high risk for anticoagulation given findings of intramural hematoma on CT scan
Acute CHF unknown EF.
Echo pending.
Given IV Lasix in the ED and transition to oral Lasix.
Reported wheezing and Rales on admission improved and currently off supplemental oxygen at rest
Dementia with agitation.
Anxiety.
Continue preadmission regimen including lorazepam and memantine.
Avoid further Haldol given risk of QTc prolongation and arrhythmia
Anticipated Discharge: 24 - 48 hours
Subjective/Interval History
-
Date of Service: December 18, 2024
Objective Data
-
Labs:
Laboratory Results
12/18/24
04:09
WBC 8.5
Hgb 13.7
Hct 41.2
Plt Count 213
Sodium 140
Potassium 4.2
Chloride 107
Carbon Dioxide 28
BUN 21 H
Creatinine 1.0
Glucose 155 H
Calcium 8.7
Vital Signs:
Vital Signs
Temp Pulse Resp BP Pulse Ox
97.9 F 95 20 94/66 96
12/18/24 11:47 12/18/24 12:25 12/18/24 06:00 12/18/24 12:25 12/18/24 06:00
I&O
12/17/24 12/18/24 12/19/24
06:59 06:59 06:59
Intake Total 360 / 360
Output Total 200 / 200
Balance 160 / 160
Physical Exam
-
General: Well Developed and No Apparent Distress
HEENT: Normocephalic, Atraumatic and Moist Mucous Membranes
Respiratory: Clear to Auscultation
Cardiac: Regular Rhythm and S1/S2; Negative Murmur, Rub or Gallop
GI: Soft, Nontender, Nondistended and Normal Bowel Sounds; Negative Organomegaly
Rectal: Deferred by Provider
Musculoskeletal: No Clubbing, No Cyanosis and No Edema
Skin: Negative Rash
Neuro: Awake, Alert, Oriented (name and place) and Nonfocal/Grossly Intact
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
--- NOTE | 2024-12-18 15:30 | W.PN.UPDATE ---
Update Note
Progress Note Update
Met with patient's daughter at the bedside.
Introduced to complicated and unfortunate clinical situation involving advanced age, dementia, new diagnosis of lung mass, advanced cardiovascular disease including CHF, dissecting ascending aortic aneurysm. Extremely high risk for unfavorable
clinical course. With full understanding, patient's daughter leaning towards palliative approach. CODE STATUS changed to DNR. Case management for hospice planning home versus facility.
--- NOTE | 2024-12-18 16:02 | CM ---
Addendum entered by Arlyn Ruggiero 12/18/24 16:18:
Call from Dai/[facility] [phone]
She will review referral
Original Note:
CM spoke with [facility] admissions as well as nursing
Pt is a LTC resident, she is [place]an speaking only, been there for a few months
Pt has dementia, AxO to self only, no behaviors pleasant, and follows simple commands
Pt ambulates and transfers with a WW, requires supervision due to unsteady gait
Pt is able to feed self, is known to sneak other resident's food and meals
Pt is a 1 person assist for all bathing and personal care tasks, she is incontinent of B/B
Bedside meeting with dtr- hospice consult placed
Pt previously was residing with dtr at her home at [address] [id number]
Lisette with [facility]
Pt was receiving waiver services
Dtr would like to bring pt home with her once waiver services have been re-established with hospice
Discussed plan for return to SNF with hospice and then eventual transition to dtr's home
Dtr will call [facility] to establish caregivers again
Call with [facility] SNF SW, she noted [facility] will service SNF with [place]an speaking staff
Referral sent to [facility] via [facility] and pending
Discharge Disposition- return to [facility] SNF with hospice, referral pending to [facility]
[2024-12-18] MEDS: SENOKOT 8.6 MG PO (17:33)
[2024-12-19 00:34] VITALS: BP 92/64
[2024-12-19] MEDS: LOPRESSOR IV ×3 (00:37→07:29)
--- NOTE | 2024-12-19 02:22 | PTCARENOTE ---
Pt continues to be only oriented to self. Pt taking off tele leads and pulse ox repeatedly. Pt finally appearing to get some sleep. Respiration even unlabored rr 20-22.
[2024-12-19 04:11] LABS: Hematocrit 37.9 % (37.0-47.0); Hemoglobin 12.8 g/dL (12.0-16.0); Mean Corp Hgb Conc. 33.8 g/dL (33.0-37.0); Mean Corpuscular Volume 85.7 fL (81.0-99.0); Nucleated Red Blood Cells % 0 %; Platelet Count 226 10^3/uL (130-400); Red Cell Dist. Width 13.5 % (11.5-14.5)
[2024-12-19 04:32] LABS: Blood Urea Nitrogen 37 mg/dl (7-17); Calcium 8.4 mg/dl (8.4-10.2); Carbon Dioxide 25 mmol/L (22-30); Chloride 111 mmol/L (98-107); Glucose 144 mg/dl (70-99); Potassium 4.2 mmol/L (3.5-5.1); Sodium 143 mmol/L (135-145); eGFR > 60.00
[2024-12-19 06:10] VITALS: BP 126/95
--- NOTE | 2024-12-19 06:25 | PTCARENOTE ---
Pt continues to take off tele leads and attempt to take IV out. Order placed for b/l restrains. When going into room to apply restraints Pt appears to be sleeping comfortably. Respirations even un labored vitals stable at this time.
[2024-12-19 06:34] LABS: Urine Character Cloudy (Clear)
--- NOTE | 2024-12-19 06:37 | PTCARENOTE ---
Pt continued to take all leads off and IVs out. restraint order placed by NP. BALBUENA TT for new IV.
[2024-12-19 07:02] LABS: Urine Red Blood Cell 0-2 /HPF (0-2); Urine Squamous Cell 16-20 /LPF (Few)
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
[2024-12-19] MEDS: LASIX 20 MG PO (09:11)
[2024-12-19] MEDS: MIRALAX 17 GRAMS PO (09:11)
[2024-12-19] MEDS: ATIVAN 0.5 MG PO (09:11)
[2024-12-19 09:12] VITALS: BP 129/91
[2024-12-19] MEDS: NAMENDA 10 MG PO (09:14)
[2024-12-19] MEDS: CARDIZEM 60 MG PO (09:14)
[2024-12-19] MEDS: VITAMIN B-12 1000 MCG PO (10:24)
--- NOTE | 2024-12-19 11:17 | W.PN.CD ---
Today's Communication / Plan
-
Will increase dilt from 60 TID to 90 QID as rates are still above 100
Continue daily Lasix
Monitor HR/BP/rhythm/rate
Impression / Plan
-
Ascending thoracic aorta dilatation (5 cm), with evidence for acute intramural hematoma with no dissection appreciated:
-on IV diltiazem for HR and BP management
-Per CTS, not surgical candidate. Vascular is consulted. HR and BP control.
Left superficial femoral artery occlusion:
-vascular consulted
AFib with RVR:
-First ekg MAT, second EKG AFib, subsequent EKGs all AFib
-seems to be new diagnosis. Move to PO dilt => increase dose today 12/19/2024
-[id number] score is 4 for age, female, hx HF. Patient with intramural hematoma and we will not start AC at this time. Also of note is that, in chart, there are reports of repeated falls and ambulatory dysfunction.
Suspected HFpEF
- Continue daily Lasix
- Can consider MRA/SGLT2-I but for now hope to keep regimen simple
Possible lung cancer
- CT notes: 2.7 cm lobulated nodule within the anterior apex of the left upper lobe suspicious for a primary lung cancer. Additional elongated pleural-based nodule within the lateral left upper lobe measuring up to 8 mm. Small left pleural effusion.
Dementia
- Limits ability to communicate with her
Danish speaker
Anxiety
Physical Exam
Vital Signs/Labs
Vital Signs
Temp Pulse Resp BP Pulse Ox
98.2 F 117 20 129/91 94
12/19/24 07:24 12/19/24 09:14 12/19/24 09:12 12/19/24 09:14 12/19/24 08:23
12/18/24 12/19/24 12/20/24
06:59 06:59 06:59
Actual Weight 81.1 kg 82.582 kg
12/19/24 03:31
12/19/24 03:31
Triglycerides 82 mg/dl (10-149) 12/18/24 04:09
LDL Cholesterol, Calc 124 mg/dl 12/18/24 04:09
VLDL Cholesterol, Calc 16 mg/dl (0-30) 12/18/24 04:09
HDL Cholesterol 42 mg/dl 12/18/24 04:09
12/17/24
11:21
[id number]-Evpqlgnxluh Pept 3890
LAB Results
12/17/24 12/17/24
11:21 19:33
Troponin I 0.036 H* 0.025
Physical Exam
Constitutional: No acute distress
Cardiovascular: Rhythm/rate is irregular
Respiratory: Respiratory effort normal and Lungs clear to auscul.
GI: Soft and Non tender
Neuro/Psych: Alert
Data Reviewed
-
Date of Service: December 19, 2024
[2024-12-19 11:26] VITALS: BP 119/100
[2024-12-19] MEDS: CARDIZEM 90 MG PO (11:26)
[2024-12-19 12:00] VITALS: BP 114/99
--- NOTE | 2024-12-19 13:00 | PTCARENOTE ---
Removed restraints from patient. Wrapped IV in LENI bandage to deter patient from pulling out IV. Pt sat up and set up for lunch
--- NOTE | 2024-12-19 14:18 | W.DS.TRANS ---
DC Summary - Bill Of Materials Clerk
-
Discharge Instructions:
Discharge Diagnosis/Procedures Exertional dyspnea likely multifactorial
secondary to below:
Left upper lobe lung mass with minimal pleural
effusion
Atrial fibrillation with RVR transitioned from
MAT, new diagnosis
Acute CHF unknown type.
Ascending thoracic aorta dilation (5 cm with
acute intramural hematoma with no dissection.
Left superficial femoral artery occlusion
incidental finding
Conditions prior to admission:
Dementia likely vascular with acute agitation
upon presentation.
Anxiety.
CKD stage IIIb unknown baseline creatinine.
Chronic constipation
B12 deficiency
Diet Regular
Instructions:
Stand-Alone Forms:
Changes to Home Medications: Yes
Discharge Medications:
DC Medications w/original date entered in [facility]
acetaminophen 325 mg tablet (Tylenol) 650 mg PO Q6HPRN PRN mild pain 12/17/24
cyanocobalamin (vitamin B-12) 1,000 mcg tablet 1,000 mcg PO DAILY Supplement 12/17/24
magnesium hydroxide 400 mg/5 mL oral suspension (Milk of Magnesia) 2,400 mg PO HSPRN PRN if no bm by 3rd day 12/17/24
memantine 10 mg tablet 10 mg PO BID Neurological Condition 12/17/24
polyethylene glycol 3350 17 gram oral powder packet (Miralax) 17 g PO DAILY Constipation 12/17/24
sennosides 8.6 mg tablet (senna) 8.6 mg PO QPM Constipation 12/17/24
diltiazem HCl 240 mg capsule,extended release 24 hr (Cardizem CD) 240 mg PO DAILY #30 caps 12/19/24
furosemide 20 mg tablet 20 mg PO DAILY #30 tabs 12/19/24
lorazepam 0.5 mg tablet 0.5 mg PO BID Mental Health/Anxiety #15 tabs 12/19/24
Home Medication Changes
Lasix increased to daily
Cardizem added
Patient is to be transitionned to hospice at nursing facility
Pending Results: No
--- NOTE | 2024-12-19 14:29 | PTCARENOTE ---
Patient's daughter at bedside and was updated on plan by and case management. asking to provide patient's daughter with progress note and any recent imagining. Patient advised she may also sign up for patient portal or go to
medical records for full chart records.
--- NOTE | 2024-12-19 14:35 | CM ---
CM reviewed pt with Dai/[facility] [phone] and [facility] admissions
Dtr signed hospice consents and they can admit today at SNF
Bedside meeting with pt and dtr
Dtr in agreement with plan
medical necessity and DNR completed and on chart
Hospice order and clinicals faxed to [facility] ([phone] f)
IMM not issued as pt with [address], no
Discharge Disposition- return to [facility] SNF with [facility] via BLS ([phone] pickup)
Phone- [phone] Fax- [phone]
[2024-12-19 17:38] VITALS: BP 117/106
--- NOTE | 2024-12-20 10:25 | PN.CDI ---
CDI
- -
CDI:
Physician Documentation Request
Admit Date: 12/17/24 15:46
Dear Doctor Adrianne,
Echo Report: 'Normal left ventricular size, wall thickness and systolic function. No regional wall motion abnormalities are seen. Left ventricular systolic function is 60-65% by visual assesment. Diastolic function indeterminate due to atrial
fibrillation.'
DC Summary: 'Acute congestive heart failure, unknown preserved ejection fraction in the setting of rapid ventricular rates with atrial fibrillation.'
Please provide further specificity regarding the most likely type of CHF you are evaluating, treating or monitoring.
Diastolic
Other
Use of terms such as suspected, likely, concern for, or probable (associated with a specific diagnosis that is being evaluated, monitored, or treated as if it exists) are acceptable and can be coded in the inpatient setting, when documented at the
time of discharge.
Thank you,
Tiff Loo RN BSN
CDI Specialist
Available via [place] text
Please use your independent medical judgment in providing your response.
== END 2024-12-19 19:34 | disposition hospice, inpatient (51) | DRG 299 ==
LOC: IMU 15:46
PROVIDERS: Clinical Nurse Specialist Family Health; ADMITTING PHYSICIAN Internal Medicine; ATTENDING PHYSICIAN Internal Medicine; CONSULT PHYSICIAN Internal Medicine; CONSULT PHYSICIAN Internal Medicine Critical Care Medicine; EMERGENCY PHYSICIAN Student in an Organized Health Care Education/Training Program; FAMILY PHYSICIAN Internal Medicine; OTHER PHYSICIAN Nurse Practitioner
DX: I71.010 Dissection of ascending aorta (principal); I50.31 Acute diastolic (congestive) heart failure; C34.12 Malignant neoplasm of upper lobe, left bronchus or lung; F01.511 Vascular dementia, unspecified severity, with agitation; F01.54 Vascular dementia, unspecified severity, with anxiety; I47.19 Other supraventricular tachycardia; Z66 Do not resuscitate; Z51.5 Encounter for palliative care; E53.8 Deficiency of other specified B group vitamins; I48.91 Unspecified atrial fibrillation; K59.09 Other constipation; I70.202 Unspecified atherosclerosis of native arteries of extremities, left leg; N18.32 Chronic kidney disease, stage 3b; R73.9 Hyperglycemia, unspecified; Z78.1 Physical restraint status; Z79.899 Other long term (current) drug therapy
CPT/HCPCS: 71046; 71275; 74174; 80048; 80053; 80061; 81003; 81015; 83690; 83880; 84443; 84484; 85025; 87086; 93005; 93306; 96374; 96375; 99291; Q9967